=== PATIENT | male | born 1975 | race Caucasian/White ===

== ENCOUNTER 2020-03-06 05:45 | Emergency (ER) | payer OTHER ==
[~2020-03-06] VITALS: Ht 182.9 cm; Wt 95.3 kg
[2020-03-06] MEDS ORDERED: MORPHINE SULFATE INJ 4 MG/ML INJ 1ML IV STA (06:08)
[2020-03-06] MEDS ORDERED: SODIUM CHLORIDE 0.9% 1000ML 1,000 ML ONE (06:08)
[2020-03-06] MEDS ORDERED: KETOROLAC TROMETHAMINE 30 MG/ML VIAL IV STA (06:08)
[2020-03-06] MEDS ORDERED: ONDANSETRON HCL INJ 2MG/ML 2ML 2 MG/ML VIAL IV STA (06:14)
[2020-03-06] MEDS ORDERED: SODIUM CHLORIDE 0.9% 1000ML 1,000 ML IV SCH (06:15)
[2020-03-06] MEDS ORDERED: MORPHINE SULFATE INJ 4 MG/ML INJ 1ML IV ONE (06:15)
[2020-03-06] MEDS ORDERED: ONDANSETRON HCL INJ 2MG/ML 2ML 2 MG/ML VIAL ONE (06:30)
[2020-03-06] MEDS ORDERED: KETOROLAC TROMETHAMINE 30 MG/ML VIAL ONE (06:30)
[2020-03-06] MEDS ORDERED: MORPHINE SULFATE INJ 4 MG/ML INJ 1ML ONE (06:31)
--- NOTE | 2020-03-06 06:58 | Emergency Department Note ---
History of Present Illnes History of Present Illness Chief Complaint: Flank Pain History of Present Illness This is a 44 year old male Chief Complaint Comment right flank pain s kota yesterday, hx of kidney stones, denies nausea or vomiting at this time. . Historian: Patient Arrival Mode: Car Onset (how long ago): day(s) (1) Location: right flank Quality: sharp Radiation: Denies non-radiation, Denies back, Denies neck, Denies extremity, Denies abdomen, Denies periumbilical, Denies flank, Denies proximal, Denies distal, Denies other Severity: moderate Onset quality: sudden Duration (how long): day(s) (1) Timing of current episode: intermittent Progression: waxing and waning Chronicity: new Context: Denies recent illness, Denies recent surgery, Denies recent immobilization, Denies recent travel, Denies trauma/injury, Denies new medications, Denies hx of DVT/PE, Denies non-compliance w/ medications, Denies other Relieving factors: none Exacerbating factors: none Associated symptoms: Denies denies other symptoms, Denies confusion, Denies chest pain, Denies cough, Denies diaphoresis, Denies fever/chills, Denies headaches, Denies loss of appetite, Denies malaise, Denies nausea/vomiting, Denies rash, Denies seizure, Denies shortness of breath, Denies syncope, Denies weakness, Denies other (MINDY SHETH MD) Past Medical/Family History Physician Review I have reviewed the patient's past medical and family history. Any updates have been documented here. (MINDY SHETH MD) Past Medical History Recent Fever: No Clinical Suspicion of Infectio: No New/Unexplained Change in Ment: No Past Medical History: Hypertension Past Surgical History: None (MINDY SHETH MD) Social History Smoking Cessation: Never Smoker Counseling Performed: No Alcohol Use: Occasional Any Illegal Drug Use: No Physically hurt or threatened: No (MINDY SHETH MD) Other Any Pre-Existing Lines (PICC,: No (MINDY SHETH MD) Review of Systems Review of Systems Constitutional: Reports no symptoms EENTM: Reports no symptoms Cardiovascular: Reports no symptoms Respiratory: Reports no symptoms Gastrointestinal: Reports as per HPI Genitourinary: Reports no symptoms Musculoskeletal: Reports no symptoms Integumentary: Reports no symptoms Neurological: Reports no symptoms Psychological: Reports no symptoms Endocrine: Reports no symptoms Hematological/Lymphatic: Reports no symptoms (MINDY SHETH MD) Physical Exam Related Data Allergies: Coded Allergies: No Known Allergies (Unverified , 03/06/20) Triage Vital Signs Vital Signs Date Time Temp Pulse Resp B/P (MAP) Pulse Ox O2 Delivery O2 Flow Rate FiO2 03/06/20 06:04 98.4 50 18 110/59 98 Room Air Vital signs reviewed: Yes (MINDY SHETH MD) Physical Exam CONSTITUTIONAL Constitutional: Present well-developed, Present well-nourished HENT HENT: Present normocephalic, Present atraumatic, Present oropharynx clear/moist, Present nose normal HENT L/R: Present left ext ear normal, Present right ext ear normal EYES Eyes: Reports PERRL, Reports conjunctivae normal NECK Neck: Present ROM normal PULMONARY Pulmonary: Present effort normal, Present breath sounds normal CARDIOVASCULAR Cardiovascular: Present regular rhythm, Present heart sounds normal, Present capillary refill normal, Present normal rate GASTROINTESTINAL Abdominal: Present soft, Present bowel sounds normal, Present tender (right flank) GENITOURINARY Genitourinary: Present exam deferred SKIN Skin: Present warm, Present dry MUSCULOSKELETAL Musculoskeletal: Present ROM normal NEUROLOGICAL Neurological: Present alert, Present oriented x 3, Present no gross motor or sensory deficits PSYCHOLOGICAL Psychological: Present mood/affect normal, Present judgement normal (MINDY SCHULTZ MD) Results Laboratory Lab results reviewed: Yes (MINDY SHETH MD) Lab results reviewed: Yes (SADA PADILLA MD) Imaging Imaging results reviewed: Yes (MINDY SHETH MD) Imaging results reviewed: Yes Imaging Comments 7 mm stone right proximal ureter, renal cyst (SADA PADILLA MD) Assessment & Plan Medical Decision Making MDM kidney stone uti (MINDY SHETH MD) Reassessment Reassessment time: 07:53 Reassessment pain controlled (SADA PADILLA MD) Assessment & Plan Final Impression: (1) Hematuria (2) Renal colic (3) Acute abdominal pain in right flank (MINDY SHETH MD) Final Impression: (1) Kidney stone on right side (2) Hydronephrosis concurrent with and due to calculi of kidney and ureter (3) Acute abdominal pain in right flank (4) Renal colic (5) Hematuria (SADA PADILLA MD) Depart Disposition: HOME, SELF-CARE Last Vital Signs Date Time Temp Pulse Resp B/P (MAP) Pulse Ox O2 Delivery O2 Flow Rate FiO2 03/06/20 06:04 98.4 50 18 110/59 98 Room Air (MINDY SHETH MD) Home Meds Active Scripts Acetaminophen/Codeine* (TYLENOL # 3*) 1 Ea Tab, 1 TAB PO TID for pain, #15 Prov:MINDY SHETH MD 03/06/20 Tamsulosin Hcl* (FLOMAX*) 0.4 Mg Cap, 0.4 MG PO DAILY, #10 CAP 0 Refills Prov:MINDY SHETH MD 03/06/20 Ketorolac Tromethamine (TORADOL) 10 Mg Tablet, 10 MG PEG TID for pain, #2 Prov:MINDY SHETH MD 03/06/20 Medications in the ED Sodium Chloride 1,000 ml @ ud STK-MED ONCE .ROUTE ; Start 03/06/20 at 06:08; Stop 03/06/20 at 06:05; Status DC Ketorolac Tromethamine 15 mg ONCE STAT IV Last administered on 03/06/20at 06:32; Admin Dose 15 MG; Start 03/06/20 at 06:08; Stop 03/06/20 at 06:13; Status DC Morphine Sulfate 2 mg ONCE STAT IV ; Start 03/06/20 at 06:08; Stop 03/06/20 at 06:14; Status DC Morphine Sulfate 4 mg ONCE ONCE IV Last administered on 03/06/20at 06:36; Admin Dose 4 MG; Start 03/06/20 at 06:15; Stop 03/06/20 at 06:16; Status DC Ondansetron HCl 4 mg NOW STAT IV Last administered on 03/06/20at 06:30; Admin Dose 4 MG; Start 03/06/20 at 06:14; Stop 03/06/20 at 06:17; Status DC Sodium Chloride 1,000 ml @ 1,000 mls/hr Q1H IV Last administered on 03/06/20at 06:10; Admin Dose 1,000 MLS/HR; Start 03/06/20 at 06:15; Stop 04/05/20 at 06:14; Status UNV Ondansetron HCl 4 mg STK-MED ONCE .ROUTE ; Start 03/06/20 at 06:30; Stop 03/06/20 at 06:27; Status DC Ketorolac Tromethamine 30 mg STK-MED ONCE .ROUTE ; Start 03/06/20 at 06:30; Stop 03/06/20 at 06:27; Status DC Morphine Sulfate 4 mg STK-MED ONCE .ROUTE ; Start 03/06/20 at 06:31; Stop 03/06/20 at 06:27; Status DC (MINDY SHETH MD) Physician Attestation Provider Attestation case discussed with Dr Kong, He will pt in clinic (SADA PADILLA MD) MINDY SHETH MD Mar 06, 2020 06:58 SADA PADILLA MD Mar 06, 2020 08:05
[2020-03-06] MEDS ORDERED: FLOMAX0.4 MG PO (07:01)
[2020-03-06] MEDS ORDERED: KETOROLAC TROME10 MG PEG (07:01)
[2020-03-06] MEDS ORDERED: TYLENOL # 31 EA PO (07:01)
--- NOTE | 2020-03-06 07:05 | NUR ---
met pt. no pain. states feeling fine. updated that we are only waiting on ct result.
[2020-03-06] MEDS ORDERED: SODIUM CHLORIDE 0.9% 1000ML 1,000 ML IV ONE (07:15)
--- NOTE | 2020-03-06 07:44 | NUR ---
pt updated with reason for wait. states no pain still
--- NOTE | 2020-03-06 07:46 | NUR ---
ct being read by back up radiologist
--- NOTE | 2020-03-06 07:48 | Diagnostic Imaging Report ---
TECHNIQUE: CT of the abdomen and pelvis WITHOUT intravenous contrast and WITHOUT oral contrast. Dose modulation, iterative reconstruction, and/or weight-based adjustment of the mA/kV was utilized to reduce the radiation dose to as low as reasonably achievable. INDICATION: 44-year-old man with right flank pain. COMPARISON: None. FINDINGS: ABSENCE OF INTRAVENOUS CONTRAST DECREASES SENSITIVITY FOR DETECTION OF FOCAL LESIONS AND VASCULAR PATHOLOGY. LOWER THORAX: Unremarkable. HEPATOBILIARY: 0.6 cm hypodensity in segment IV/VIII towards the dome is too small to characterize, but is likely a benign entity such as a cyst. Gallbladder is unremarkable. No biliary ductal dilatation. SPLEEN: No splenomegaly. PANCREAS: No focal masses or ductal dilatation. ADRENALS: No adrenal nodules. KIDNEYS/URETERS: 0.7 cm calculus in the right ureteropelvic junction results in mild hydronephrosis. 10.1 x 10.1 x 11.2 cm structure in the right kidney with density slightly greater than simple fluid contains a few subcentimeter calcifications. Unremarkable left kidney. PELVIC ORGANS/BLADDER: Bladder is underdistended. Prostate and seminal vesicles are grossly unremarkable. PERITONEUM/RETROPERITONEUM: No free air or fluid. LYMPH NODES: No lymphadenopathy. VESSELS: Unremarkable. GI TRACT: No distention or wall thickening. Colonic diverticula. Normal appendix. BONES AND SOFT TISSUES: Unremarkable. IMPRESSION: 0.7 cm calculus in the right ureteropelvic junction results in mild hydronephrosis. 11.2 cm structure in the right kidney, incompletely characterized on this noncontrast CT. Differential considerations include neoplasm and debris-containing cyst with calcified septations. Nonemergent abdomen CT or MRI with and without intravenous contrast (renal mass protocol) is recommended for further characterization. Signed by: Tim Graham MD on 03/06/2020 7:45 AM
== END 2020-03-06 08:11 | disposition home or self-care (01) ==
LOC: FSED 06:10
DX: R31.9 Hematuria, unspecified (principal); N13.2 Hydronephrosis with renal and ureteral calculous obstruction; M54.5 Low back pain; R10.9 Unspecified abdominal pain; I10 Essential (primary) hypertension
CPT/HCPCS: 74176; 80048; 80076; 81003; 85025; 99284; J1885; J2270; J2405; J7030

== ENCOUNTER 2020-03-07 22:05 | Emergency (ER) | payer OTHER ==
[~2020-03-07] VITALS: Ht 182.9 cm; Wt 97.5 kg
[~2020-03-07 22:05] MED LIST: FLOMAX0.4 MG PO; KETOROLAC TROME10 MG PEG; TYLENOL # 31 EA PO
[2020-03-07] MEDS ORDERED: ONDANSETRON HCL INJ 2MG/ML 2ML 2 MG/ML VIAL IV STA ×2 (22:17→22:51)
[2020-03-07] MEDS ORDERED: KETOROLAC TROMETHAMINE 30 MG/ML VIAL IV STA (22:17)
[2020-03-07] MEDS ORDERED: MORPHINE SULFATE INJ 4 MG/ML INJ 1ML IV STA (22:38)
[2020-03-07] MEDS ORDERED: ONDANSETRON HCL INJ 2MG/ML 2ML 2 MG/ML VIAL ONE (22:54)
[2020-03-07] MEDS ORDERED: MORPHINE SULFATE INJ 4 MG/ML INJ 1ML ONE (22:54)
[2020-03-08 00:28] VITALS: BP 140/58
--- NOTE | 2020-03-08 00:36 | Emergency Department Note ---
History of Present Illnes History of Present Illness Chief Complaint: Flank Pain History of Present Illness This is a 44 year old male presents with right flank pain since 03/05. Saw here yesterday and had CT that showed kidney stone. Patient not tolerating pain at home despite pain medication. No fever/chills. Bench Mechanic Required: No Onset (how long ago): day(s) Radiation: Reports non-radiation Severity: mild Duration (how long): day(s) Timing of current episode: intermittent Progression: waxing and waning Chronicity: new Context: Reports recent illness; Denies trauma/injury Relieving factors: none Exacerbating factors: none Associated symptoms: Denies confusion, Denies chest pain, Denies cough, Denies diaphoresis, Denies fever/chills, Denies headaches, Denies loss of appetite, Denies malaise, Denies nausea/vomiting, Denies rash, Denies seizure, Denies shortness of breath, Denies syncope, Denies weakness Past Medical/Family History Physician Review I have reviewed the patient's past medical and family history. Any updates have been documented here. Past Medical History Past Medical History: Hypertension Past Surgical History: None Review of Systems Review of Systems Constitutional: Denies chills, Denies diaphoresis, Denies fever EENTM: Denies ear pain, Denies nose congestion, Denies throat pain, Denies throat swelling Cardiovascular: Denies edema, Denies palpitations Respiratory: Denies cough, Denies pain with cough Gastrointestinal: Denies abdominal pain, Denies nausea Genitourinary: Denies dysuria, Denies hematuria Musculoskeletal: Reports back pain; Denies joint pain, Denies muscle pain, Denies muscle stiffness Integumentary: Denies rash Neurological: Denies headache, Denies tingling Psychological: Denies anxiety Endocrine: Denies increased thirst, Denies increased urination Hematological/Lymphatic: Denies easy bleeding, Denies easy bruising Physical Exam Related Data Allergies: Coded Allergies: No Known Allergies (Unverified , 03/06/20) Physical Exam CONSTITUTIONAL Constitutional: Present well-developed, Present well-nourished HENT HENT: Present normocephalic, Present atraumatic, Present oropharynx clear/moist, Present nose normal HENT L/R: Present left ext ear normal, Present right ext ear normal EYES Eyes: Reports PERRL, Reports conjunctivae normal NECK Neck: Present ROM normal PULMONARY Pulmonary: Present effort normal, Present breath sounds normal CARDIOVASCULAR Cardiovascular: Present regular rhythm, Present heart sounds normal, Present capillary refill normal, Present normal rate GASTROINTESTINAL Abdominal: Present soft, Present nontender, Present bowel sounds normal GENITOURINARY Genitourinary: Present exam deferred SKIN Skin: Present warm, Present dry MUSCULOSKELETAL Musculoskeletal: Present ROM normal NEUROLOGICAL Neurological: Present alert, Present oriented x 3, Present no gross motor or sensory deficits PSYCHOLOGICAL Psychological: Present mood/affect normal, Present judgement normal Results Laboratory Laboratory comments WBC 1, HGB 14.7, HCT 43.5, PLT 211. UA: large bloood, neg glu, carlton, ket, nit, genet. CMP: Cr 1.5, Na 141, K 3.8, CO2 25, Cl 103, GLY 139, BUN 12. Assessment & Plan Medical Decision Making MDM Reviewed old chart from yesterday and CT showed 0.7 cm calculus in rt UPJ and mild hydro along with 11.2 cm structure in rt kidney. Spoke with Dr. Vance urology who stated would consult if patient wanted admit for pain control - OK with Cr 1.5 if patient wants to go home. Spoke with patient who elected to be discharged home. Gave strict return precautions and will f/u urology on Monday. Reassessment Reassessment Pain greatly resolved with IV morphine. Assessment & Plan Final Impression: (1) Nephrolithiasis (2) Hydronephrosis concurrent with and due to calculi of kidney and ureter (3) Renal colic (4) Kidney stone on right side Depart Disposition: HOME, SELF-[facility] Meds Active Scripts Acetaminophen/Codeine* (TYLENOL # 3*) 1 Ea Tab, 1 TAB PO TID for pain, #15 Prov:MINDY SHETH MD 03/06/20 Tamsulosin Hcl* (FLOMAX*) 0.4 Mg Cap, 0.4 MG PO DAILY, #10 CAP 0 Refills Prov:MINDY SHETH MD 03/06/20 Ketorolac Tromethamine (TORADOL) 10 Mg Tablet, 10 MG PEG TID for pain, #2 Prov:MINDY SHETH MD 03/06/20 Medications in the ED Ondansetron HCl 4 mg NOW STAT IV ; Start 03/07/20 at 22:17; Stop 03/07/20 at 22:21; Status DC Ketorolac Tromethamine 30 mg ONCE STAT IV ; Start 03/07/20 at 22:17; Stop 03/07/20 at 22:21; Status DC ASHA RODRIGEZ MD Mar 07, 2020 22:28
--- OUTSIDE RECORDS SUMMARY | 2020-03-08 16:48 | XMS REPORT | Continuity of Care Document ---
Author Author [facility] t Organization [facility] Address [address] [place] [address] Phone Unavailable Care Team Providers Care Automation And Controls Manager Name Role Phone MD ISABEL ALBARADO PCP Jaron PADILLA Unavailable Payers Payer Name Policy Type Policy Number Effective Date Expiration Date Soledad Neumann [facility] [id number] 2001 00:00:00 [facility] Problems Condition Name Condition Details Condition Category Status Onset Date Resolution Date Last Treatment Date Treating Clinician Comments Source Acute right flank pain Problem Active [facility] Renal colic Problem Active [facility] Hematuria Problem Active [facility] Calculus of kidney Problem Active [facility] Hydronephrosis concurrent with and due to calculi of kidney and ureter Problem Active [facility] Allergies, Adverse Reactions, Alerts This patient has no known allergies or adverse reactions. Social History Social Habit Start Date Stop Date Quantity Comments Source Sex Assigned At 1975 00:00:00 1975 00:[birth year]:00 Male [facility] Medications Ordered Medication Name Filled Medication Name Start Date Stop Da te Current Medication? Ordering Clinician Indication Dosage Frequency Signature (SIG) Comments Components Source Acetaminophen/Codeine Phosphate (Tylenol # 3*) 1 Ea TA B Acetaminophen/Codeine Phosphate (Tylenol # 3*) 1 Ea TAB 2020-03-06 07:01:00 Yes 1 Three Times A Day for Pain [facility] Ketorolac Tromethamine (Toradol) 10 Mg TABLET Ketorola c Tromethamine (Toradol) 10 Mg TABLET 2020-03-06 07:01:00 Yes 10 Three Times A Day for Pain [facility] Tamsulosin Hcl (Flomax*) 0.4 Mg CAP Tamsulosin Hcl (Flomax*) 0.4 Mg CAP 2020-03-06 07:01:00 Yes .4 Daily [facility] Vital Signs Vital Name Observation Time Observation Value Comments Source Body Temperature 2020-03-08 00:28:00 99.2 [degF] [facility] Weight 2020-03-07 22:20:00 215 [lb_av] [facility] BMI (Body Mass Index) 2020-03-07 22:20:00 29.2 kg/m2 [facility] Weight 2020-03-06 06:04:00 210 [lb_av] [facility] BMI (Body Mass Index) 2020-03-06 06:04:00 28.5 kg/m2 [facility] Procedures This patient has no known procedures. Plan of Care Planned Activity Planned Date Details Comments Source Instructions Kidney Stones [facility] Encounters Start Date/Time End Date/Time Encounter Type Admission Type Attendi [facility] Care Department Encounter ID Source 2020-03-07 22:08:00 2020-03-08 00:30:00 Departed Emergency Room [facility] [id number] [facility] dical [place] 2020-03-06 06:10:00 2020-03-06 08:11:00 Departed Emergency Room 1 SADA PADILLA [facility] [id number] [facility] Results Test Description Test Time Test Comments Results Result Comments Source CT ABD/PEL WO CONTRAST-HOPD 2020-03-06 07:34:00 [facility] [address] [place] [address] Patient Name: ANKIT LEZAMA MR #: [id number] : 1975 Age/Sex: 44/M Req #: [id number] Adm Physician: Ordered by: MINDY SHETH MD Report #: [id number] Location: [facility] Room/Bed: Procedure: [id number] HOPD/CT ABD/PEL WO CONTRAST-HOPD Exam Date: 03/06/20 Exam Time: 614 REPORT STATUS: Signed TECHNIQUE: CT of the abdomen and pelvis WITHOUT intravenous contrast and WITHOUT oral contrast. Dose modulation, iterative reconstruction, and/or weight-based adjustment of the mA/kV was utilized to reduce the radiation dose to as low as reasonably a chievable. INDICATION: 44-year-old man with right flank pain. COMPARISON: None. FINDINGS: ABSENCE OF INTRAVENOUS CONTRAST DECREASES SENSITIVITY FOR DETECTION OF FOCAL LESIONS AND VASCULAR PATHOLOGY. LOWER THORAX: Unremarkable. HEPATOBILIARY: 0.6 cm hypodensity in segment IV/VIII towards the dome is too small to characterize, but is likely a benign entity such as a cyst. Gallbladder is unremarkable. No biliary ductal dilatation. SPLEEN: No splenomegaly. PANCREAS: No focal masses or ductal dilatation. ADRENALS: No adrenal nodules. KIDNEYS/URETERS: 0.7 cm calculus in the right ureteropelvic junction results in mild hydronephrosis. 10.1 x 10.1 x 11.2 cm structure in the right kidney with density slightly greater than simple fluid contains a few subcentimeter calcifications. Unremarkable left kidney. PELVIC ORGANS/BLADDER: Bladder is underdistended. Prostate and seminal vesicles are grossly unremarkable. PERITONEUM/RETROPERITONEUM: No free air or fluid. LYMPH NODES: No lymphadenopathy. VESSELS: Unremarkable. GI TRACT: No distention or wall thickening. Colonic diverticula. Normal appendix. BONES AND SOFT TISSUES: Unremarkable. IMPRESSION: 0.7 cm calculus in the right ureteropelvic junction results in mild hydronephrosis. 11.2 cm structure in the right kidney, incompletely characterized on this noncontrast CT. Differential considerations include neoplasm and debris-containing cyst with calcified septations. Nonemergent abdomen CT or MRI with and without intravenous contrast (renal mass protocol) is recommended for further characterization. Signed by: Juan Francisco Polo MD on 03/06/2020 7:45 AM Dictated By: JUAN FRANCISCO POLO MD 4 Transcribed By: TALISHA on 03/06/20744 COPY TO: MINDY SHETH MD
== END 2020-03-08 00:30 | disposition home or self-care (01) ==
LOC: FSED 22:08
DX: M54.5 Low back pain (principal); N13.2 Hydronephrosis with renal and ureteral calculous obstruction; R11.2 Nausea with vomiting, unspecified; I10 Essential (primary) hypertension
CPT/HCPCS: 80053; 81003; 85025; 99283; J2270; J2405